=== PATIENT | male | born 1955 | race Caucasian/White ===

== ENCOUNTER 2019-11-23 09:49 | Outpatient (CLI) | payer OTHER ==
[2019-11-23] MEDS ORDERED: HYDR25TA6 PO (10:33)
[2019-11-23] MEDS ORDERED: CLON0.25 PO (10:33)
[2019-11-23] MEDS ORDERED: LISI40TA PO (10:33)
[2019-11-23] MEDS ORDERED: ATOR20TA37 PO (10:33)
[2019-11-23] MEDS ORDERED: VILA20TA PO (10:33)
[2019-11-23 11:05] LABS: MICROSCOPIC AUTO
[2019-11-23 11:12] LABS: BASOPHILS # (AUTO) 0.05 x10^3/uL (0-0.1); BASOPHILS % (AUTO) 1 % (0-1); EOSINOPHILS # (AUTO) 0.16 x10^3/uL (0-0.4); EOSINOPHILS % (AUTO) 3 % (1-7); LYMPHOCYTES # (AUTO) 1.72 x10^3/uL (1-3.4); LYMPHOCYTES % (AUTO) 32 % (22-44); MD NO; MEAN CORPUSCULAR HEMOGLOBIN 31.7 pg (27.5-34.5); MEAN CORPUSCULAR HGB CONC 33.7 g/dL (33.2-36.2); MEAN PLATELET VOLUME 8.6 fL (7.4-10.4); MONOCYTES # (AUTO) 0.36 x10^3/uL (0.2-0.8); MONOCYTES % (AUTO) 7 % (2-9); NEUTROPHILS # (AUTO) 3.15 x10^3/uL (1.8-6.8); NEUTROPHILS % (AUTO) 58 % (42-75); PLATELET COUNT 188 x10^3/uL (130-400); RED BLOOD COUNT 5.27 x10^6/uL (4.38-5.82); RED CELL DISTRIBUTION WIDTH 12.7 % (9.4-14.8)
[2019-11-23 11:14] LABS: INTERNATIONAL NORMALIZED RATIO 0.94 (0.93-1.1)
[2019-11-23 11:15] LABS: ALANINE AMINOTRANSFERASE 48 U/L (12-78); ALBUMIN 4.1 g/dL (3.4-5.0); ANION GAP 5 mmol/L (5-15); CHLORIDE 103 mmol/L (98-107); CREATININE 1.02 mg/dL (0.7-1.3)
[2019-11-23 11:17] LABS: ALKALINE PHOSPHATASE 86 U/L (45-117); BILIRUBIN,TOTAL 0.8 mg/dL (0.2-1.0); TOTAL PROTEIN 7.1 g/dL (6.4-8.2)
[2019-11-28] MEDS ORDERED: OXYC-302 PO (12:54)
[2019-11-28] MEDS ORDERED: CYCL-259 PO (12:54)
== END 2019-11-23 23:59 | disposition home or self-care (01) ==
LOC: STAR 09:49
PROVIDERS: ATTEND Neurological Surgery
DX: Z01.818 Encounter for other preprocedural examination (principal); M51.37 Other intervertebral disc degeneration, lumbosacral region; M48.07 Spinal stenosis, lumbosacral region
CPT/HCPCS: 36415; 71046; 72110; 80053; 81001; 85025; 85610; 85730; 87086; 93005